=== PATIENT | female | born 1940 | race Caucasian/White ===

== ENCOUNTER 2021-01-11 08:13 | Emergency (ER) | payer MEDICARE, OTHER ==
[2021-01-11 09:13] LABS: Absolute Lymphocytes (CBC) 1.8 K/uL (0.7-4.9); Hematocrit 41.4 % (36.0-45.0); Lymphocytes % 16.8 % (15.3-44.8); MPV 7.8 fL (7.6-11.3); RBC Red Blood Cell Count 4.89 M/uL (3.86-4.86)
[2021-01-11 09:34] LABS: Albumin 3.1 g/dL (3.4-5.0); Bilirubin Direct 0.1 mg/dL (0-0.2); Bilirubin Total 0.4 mg/dL (0.2-1.0); Protein, Total 6.9 g/dL (6.4-8.2)
[2021-01-11 09:35] LABS: Potassium 3.6 mmol/L (3.5-5.1)
--- NOTE | 2021-01-11 10:03 | RAD REPORT ---
EXAM DESCRIPTION: CT - Abdomen Pelvis W Contrast - 01/11/2021 9:47 am CLINICAL HISTORY: ABD PAIN COMPARISON: No comparisons TECHNIQUE: Biphasic, helical CT imaging of the abdomen and pelvis was performed following 100 ml non -ionic IV contrast. No oral contrast was administered. All CT scans are performed using dose optimization technique as appropriate and may include automated exposure control or mA/KV adjustment according to patient size. FINDINGS: No suspicious findings in the lung bases. No cardiomegaly or pericardial effusion. Liver shows mild diffuse fatty infiltration pattern with no focal parenchymal lesion. No portal vein abnormality. Spleen and pancreas show no suspicious findings. Small accessory splenic nodule present peer cholecystectomy clips are present with no biliary tree dilatation. Symmetric renal function is seen with no hydronephrosis or suspicious renal mass. No pyelonephritis o r acute parenchymal process. A 2.7 centimeter upper pole right renal cyst is present. Contracted urin luz maria bladder shows no suspicious finding. No adrenal abnormalities. Prolapse changes are seen along the pelvic floor. Uterus is absent. Ovaries are absent or atrophic. N o adnexal mass. No dilated bowel loops or bowel wall thickening. Patient has mild left-sided diverticulosis without d iverticulitis. Appendix is not clearly seen and may be surgically absent. No appendicitis findings. N o free air, free fluid or inflammatory stranding. No hernia, mass or bulky lymphadenopathy. Spinal degenerative changes are present. Significant disc space narrowing with degenerative gas in th e disc space is noted L2-3, L3-4 and L4-5. There is slight anterior subluxation of L4 on L5 due to ad vanced facet joint degenerative change. Herniation of disc material is present in the left exit kisha en at L3-4. No central spinal stenosis seen. No acute bony pelvic finding. IMPRESSION: Contrast enhanced CT abdomen and pelvis showing no acute or emergent finding. Nonacute findings detailed in the body of the report.
[2021-01-11] MEDS ORDERED: KETOROLAC 30 MG/ML INJ ONE (10:08)
[2021-01-11] MEDS ORDERED: NA CHLORIDE 0.9% 1,000 ML ONE (10:13)
[2021-01-11 11:01] LABS: Urine Appearance CLEAR (Clear); Urine Bilirubin NEGATIVE (Negative); Urine Blood NEGATIVE (Negative); Urine Color YELLOW (Yellow); Urine Glucose NEGATIVE (Negative); Urine Protein NEGATIVE (Negative); Urine Specific Gravity 1.025 (1.005-1.030); Urine Urobilinogen 0.2 mg/dL (0.2-1.0); Urine pH 6.5 (5.0-7.0)
[2021-01-11 11:02] LABS: Urine Microscopic Reflex NO UMIC
--- NOTE | 2021-01-11 11:12 | EDPHYS ---
Physician Documentation [facility] Name: Atiya Wallace Age: 80 yrs Sex: Female : 1940 Arrival Date: 01/11/2021 Time: 08:16 Bed 20 Private MD: ED Physician Vincenzo Faust HPI: 01/11 08:25 This 80 yrs old Female presents to ER via Unassigned with complaints of kdr Abdominal pain and weakness. 08:25 Patient called EMS this morning because she was having persistent abdominal pain and kdr weakness. States that she is normally able to get up and care for herself but this morning she was having too much pain in her lower abdomen and generally felt weak. She had no other focal complaints. She has had similar symptoms in the past. Most recently she has been treated by Dr. Lange for hip pain. She indicated that she had not been getting those treatments for about a month since they were too expensive. Onset: The symptoms/episode began/occurred gradually, yesterday. Severity of symptoms: At their worst the symptoms were mild moderate incapacitating in the emergency department the symptoms are unchanged. The patient has experienced similar episodes in the past, a few times. The patient has not recently seen a physician. Patient refused pain medication on initial exam. Historical: - Allergies: 08:27 Aspirin; sl2 08:27 Demerol; sl2 08:27 Ibuprofen; sl2 08:27 Unable to obtain; sl2 08:27 Morphine; sl2 08:27 Codeine; sl2 08:27 Latex, Natural Rubber; sl2 08:27 Sulfa (Sulfonamide Antibiotics); sl2 08:27 Iodine; sl2 08:27 NKA; sl2 08:27 NKDA; sl2 08:27 Oxycodone; sl2 08:27 Tetanus Vaccines \T\ Toxoid; sl2 08:27 PENICILLINS; sl2 - Immunization history:: Adult Immunizations up to date, Client reports receiving the 2nd dose of the Covid vaccine. - Social history:: Smoking status: Patient denies any tobacco usage or history of. ROS: 08:25 Constitutional: Negative for fever, chills, and weight loss, Eyes: Negative for injury, kdr pain, redness, and discharge, ENT: Negative for injury, pain, and discharge, Neck: Negative for injury, pain, and swelling, Cardiovascular: Negative for chest pain, palpitations, and edema, Respiratory: Negative for shortness of breath, cough, wheezing, and pleuritic chest pain, Back: Negative for injury and pain, : Negative for injury, bleeding, discharge, and swelling, MS/Extremity: Negative for injury and deformity, Skin: Negative for injury, rash, and discoloration, Neuro: Negative for headache, weakness, numbness, tingling, and seizure activity. Psych: Negative for depression, anxiety, suicide ideation, homicidal ideation, and hallucinations, Allergy/Immunology: Negative for hives, rash, and allergies, Endocrine: Negative for neck swelling, polydipsia, polyuria, polyphagia, and marked weight changes, Hematologic/Lymphatic: Negative for swollen nodes, abnormal bleeding, and unusual bruising. 08:25 Abdomen/GI: Positive for abdominal pain, Negative for nausea, vomiting, and diarrhea, constipation, abdominal cramps, abdominal distension, dysphagia, hematemesis, black/tarry stool, rectal pain, rectal bleeding. Exam: 08:25 Constitutional: This is a well developed, well nourished patient who is awake, alert, kdr and in no acute distress. Head/Face: Normocephalic, atraumatic. Eyes: Pupils equal round and reactive to light, extra-ocular motions intact. Lids and lashes normal. Conjunctiva and sclera are non-icteric and not injected. Cornea within normal limits. Periorbital areas with no swelling, redness, or edema. Neck: Trachea midline, no thyromegaly or masses palpated, and no cervical lymphadenopathy. Supple, full range of motion without nuchal rigidity, or vertebral point tenderness. No Meningismus. Chest/axilla: Normal chest wall appearance and motion. Nontender with no deformity. No lesions are appreciated. Cardiovascular: Regular rate and rhythm with a normal S1 and S2. No gallops, murmurs, or rubs. Normal PMI, no JVD. No pulse deficits. Respiratory: Lungs have equal breath sounds bilaterally, clear to auscultation and percussion. No rales, rhonchi or wheezes noted. No increased work of breathing, no retractions or nasal flaring. Back: No spinal tenderness. No costovertebral tenderness. Full range of motion. Skin: Warm, dry with normal turgor. Normal color with no rashes, no lesions, and no evidence of cellulitis. MS/ Extremity: Pulses equal, no cyanosis. Neurovascular intact. Full, normal range of motion. Neuro: Awake and alert, GCS 15, oriented to person, place, time, and situation. Cranial nerves II-XII grossly intact. Motor strength 5/5 in all extremities. Sensory grossly intact. Cerebellar exam normal. Normal gait. Psych: Awake, alert, with orientation to person, place and time. Behavior, mood, and affect are within normal limits. 08:25 Abdomen/GI: Inspection: obese Bowel sounds: active, diminished, in all quadrants, Palpation: soft, mild abdominal tenderness, in the left lower quadrant. Vital Signs: 08:09 BP 156 / 85; Pulse 65; Resp 20; Temp 97.7(T); Pulse Ox 96% on R/A; sl2 09:20 BP 152 / 80; Pulse 68; Resp 18; Temp 97.7; Pulse Ox 96% ; sl2 10:30 BP 116 / 63; Pulse 85; Resp 18; Temp 97.9(O); Pulse Ox 98% on R/A; sl2 11:30 BP 113 / 75; Pulse 63; Resp 18; Temp 97.7(O); Pulse Ox 99% on R/A; sl2 13:14 BP 118 / 76; Pulse 68; Resp 18; Temp 98.4(O); Pulse Ox 99% on R/A; sl2 MDM: 08:25 Data reviewed: vital signs, nurses notes, lab test result(s), radiologic studies. kdr Counseling: I had a detailed discussion with the patient and/or guardian regarding: the historical points, exam findings, and any diagnostic results supporting the discharge/admit diagnosis, lab results, radiology results, the need for outpatient follow up. 11:11 Patient medically screened. kdr 01/11 08:25 Order name: Basic Metabolic Panel; Complete Time: 10:13 kdr 01/11 08:25 Order name: CBC with Diff; Complete Time: 09:33 kdr 01/11 08:25 Order name: CT Abd/Pelvis - IV Contrast Only; Complete Time: 10:13 kdr 01/11 08:25 Order name: Hepatic Function; Complete Time: 10:13 kdr 01/11 08:25 Order name: Lipase; Complete Time: 10:13 kdr 01/11 08:25 Order name: Urinalysis; Complete Time: 11:52 kdr 01/11 08:25 Order name: IV Saline Lock; Complete Time: 09:07 kdr 01/11 08:25 Order name: Labs collected and sent; Complete Time: 09: kdr Administered Medications: 09:10 Drug: NS 0.9% 500 ml Route: IV; Rate: bolus; Site: left forearm; sl2 10:30 Follow up: Response: No adverse reaction; IV Status: Completed infusion; IV Intake: sl2 500ml 10:36 Drug: Ketorolac 15 mg Route: IVP; Site: right forearm; sl2 11:47 Follow up: Response: No adverse reaction; Pain is decreased sl2 Disposition Summary: 01/11/21 11:11 Discharge Ordered Location: Home kdr Problem: new kdr Symptoms: have improved kdr Condition: Stable kdr Diagnosis - Other abdominal pain - Left lower quadrant kdr - Weakness kdr Followup: kdr - With: Private Physician - When: 2 - 3 days - Reason: If symptoms return, Further diagnostic work-up, Recheck today's complaints, Continuance of care, Re-evaluation by your physician Discharge Instructions: - Discharge Summary Sheet kdr - Abdominal Pain, Adult, [id number] kdr - Weakness, [id number] kdr Forms: - Medication Reconciliation Form kdr - Thank You Letter kdr - Antibiotic Education kdr Prescriptions: - Zofran 4 mg Oral Tablet - take 1 tablet by ORAL route every 4-6 hours As needed; 12 tablet; Refills: 0, kdr Product Selection Permitted Signatures: Dispatcher [facility] Hospital[facility] M[facility]onnell MD MD kdr Medina Diaz RN RN Lorraine Leal RN RN sl2 Corrections: (The following items were deleted from the chart) 08:27 08:27 Allergies: No Known Allergies; sl2 sl2
--- NOTE | 2021-01-11 11:12 | ER ---
Nurse's Notes [facility] Name: Atiya Wallace Age: 80 yrs Sex: Female : 1940 Arrival Date: 01/11/2021 Time: 08:16 Bed 20 Private MD: Diagnosis: Other abdominal pain-Left lower quadrant;Weakness Presentation: 01/11 08:09 Chief complaint: EMS states: Patient presents to ED via [facility] with c/o severe sl2 bilateral flank pain and bilateral lower abdominal pain 8 of 10. States urinary frequency but states she drinks a lot of water. Patient has h/o chronic back pain however states this back pain is unusual. Denies Fever, nausea or vomiting. 08:09 Coronavirus screen: Vaccine status: Patient reports receiving the 2nd dose of the covid sl2 vaccine. Ebola Screen: Patient negative for fever greater than or equal to 101.5 degrees Fahrenheit, and additional compatible Ebola Virus Disease symptoms. Initial Sepsis Screen: Does the patient meet any 2 criteria? No. Patient's initial sepsis screen is negative. Does the patient have a suspected source of infection? No. Patient's initial sepsis screen is negative. Risk Assessment: Do you want to hurt yourself or someone else? Patient reports no desire to harm self or others. Onset of symptoms was January 11, 2021. 08:09 Method Of Arrival: EMS: [facility] 08:09 Acuity: ABI 2 sl2 Triage Assessment: 08:27 General: Appears uncomfortable, obese, well developed. Pain: Complains of pain in sl2 bilateral flank and bilateral lower quadrant of abdomen Pain radiates to flank to abdomen Pain currently is 8 out of 10 on a pain scale. at worst was 10 out of 10 on a pain scale. Quality of pain is described as burning, aching, sharp, Pain began suddenly. EENT: No deficits noted. Neuro: No deficits noted. Cardiovascular: No deficits noted. Respiratory: No deficits noted. GI: Abdomen is round obese, Last BM was . Bowel sounds present X 4 quads. Abd is soft Abdomen is tender to palpation in right lower quadrant and left lower quadrant. : No deficits noted. Derm: No deficits noted. Musculoskeletal: No deficits noted. Historical: - Allergies: 08:27 Aspirin; sl2 08:27 Demerol; sl2 08:27 Ibuprofen; sl2 08:27 Unable to obtain; sl2 08:27 Morphine; sl2 08:27 Codeine; sl2 08:27 Latex, Natural Rubber; sl2 08:27 Sulfa (Sulfonamide Antibiotics); sl2 08:27 Iodine; sl2 08:27 NKA; sl2 08:27 NKDA; sl2 08:27 Oxycodone; sl2 08:27 Tetanus Vaccines \T\ Toxoid; sl2 08:27 PENICILLINS; sl2 - Immunization history:: Adult Immunizations up to date, Client reports receiving the 2nd dose of the Covid vaccine. - Social history:: Smoking status: Patient denies any tobacco usage or history of. Screenin:50 Abuse screen: Denies threats or abuse. Nutritional screening: No deficits noted. sl2 Tuberculosis screening: No symptoms or risk factors identified. Fall Risk None identified. Assessment: 08:50 General: Appears uncomfortable, obese, well developed, Behavior is cooperative, sl2 appropriate for age, restless, Reports bilateral flank and bilateral lower quadrant abdominal pain. 08:50 Pain: Pain radiates to right lower quadrant and left lower quadrant abdomen Pain sl2 currently is 8 out of 10 on a pain scale. at worst was 10 out of 10 on a pain scale. level that patient reports is acceptable is 2 out of 10 on a pain scale. Quality of pain is described as aching, crampy, sharp, Pain began suddenly, Is continuous, Alleviated by nothing. Aggravated by increased activity. Pain: Noted to be agitated, grimacing, moaning, restless, Also complains of no other associated symptoms. Pain: Current management is with Patient states she took 2 tramadol prior to ED arrival - denies needing pain medication at this time. Neuro: No deficits noted. Level of Consciousness is awake, alert, obeys commands, Oriented to person, place, time, situation, Director Machine are equal bilaterally Moves all extremities. Full function Speech is normal, Facial symmetry appears normal. Cardiovascular: No deficits noted. Respiratory: No deficits noted. GI: Abdomen is round obese, Bowel sounds present X 4 quads. Abd is soft Abdomen is tender to palpation bilateral lower quadrant - abdomen Reports lower abdominal pain, Patient currently denies diarrhea, nausea. : Reports urinary frequency, bilateral flank pain Denies burning with urination, incontinence. EENT: No deficits noted. Derm: No deficits noted. Musculoskeletal: No deficits noted. 09:30 Pain: Pain currently is 6 out of 10 on a pain scale. sl2 Vital Signs: 08:09 BP 156 / 85; Pulse 65; Resp 20; Temp 97.7(T); Pulse Ox 96% on R/A; sl2 09:20 BP 152 / 80; Pulse 68; Resp 18; Temp 97.7; Pulse Ox 96% ; sl2 10:30 BP 116 / 63; Pulse 85; Resp 18; Temp 97.9(O); Pulse Ox 98% on R/A; sl2 11:30 BP 113 / 75; Pulse 63; Resp 18; Temp 97.7(O); Pulse Ox 99% on R/A; sl2 13:14 BP 118 / 76; Pulse 68; Resp 18; Temp 98.4(O); Pulse Ox 99% on R/A; sl2 ED Course: 08:16 Patient arrived in ED. eb 08:16 Vincenzo Faust MD is Attending Physician. eb 08:22 Lorraine Leal RN is Primary Nurse. sl2 08:27 Triage completed. sl2 08:27 Arm band placed on right wrist. sl2 08:50 Patient has correct armband on for positive identification. Bed in low position. Side sl2 rails up X2. 09:00 Inserted saline lock: 22 gauge in left forearm, using aseptic technique. Blood sl2 collected. 09:15 Inserted saline lock: 22 gauge in right forearm, using aseptic technique. sl2 09:[address] via stretcher. sl2 09:47 CT Abd/Pelvis - IV Contrast Only In Process Unspecified. EDMS 09:[address]. sl2 13:12 No provider procedures requiring assistance completed. IV discontinued, intact. sl2 Administered Medications: 09:10 Drug: NS 0.9% 500 ml Route: IV; Rate: bolus; Site: left forearm; sl2 10:30 Follow up: Response: No adverse reaction; IV Status: Completed infusion; IV Intake: sl2 500ml 10:36 Drug: Ketorolac 15 mg Route: IVP; Site: right forearm; sl2 11:47 Follow up: Response: No adverse reaction; Pain is decreased sl2 Intake: 10:30 IV: 500ml; Total: 500ml. sl2 Outcome: 11:11 Discharge ordered by . kdr 13:12 Discharged to home via wheelchair, with family. sl2 13:12 Condition: stable 13:12 Discharge instructions given to Instructed on discharge instructions, follow up and referral plans. medication usage, Demonstrated understanding of Prescriptions given X 1. 13:15 Patient left the ED. sl2 Signatures: Dispatcher [employer] EDMS Vincenzo Faust MD MD kdr Botello, Elizabeth eb Landell, Sophia RN RN sl2 Corrections: (The following items were deleted from the chart) 08:27 08:27 Allergies: No Known Allergies; sl2 sl2 09:49 09:00 Inserted saline lock: 22 gauge in left upper arm, using aseptic technique. Blood sl2 collected. sl2
[2021-01-11 13:38] VITALS: O2SAT 99
[2021-01-11 13:39] VITALS: BP 118/76; TEMP 98.4
== END 2021-01-11 13:15 | disposition home or self-care (01) ==
LOC: ER 08:13
DX: R53.1 Weakness (principal); Z88.0 Allergy status to penicillin; Z88.2 Allergy status to sulfonamides; Z88.5 Allergy status to narcotic agent; Z88.6 Allergy status to analgesic agent; Z88.7 Allergy status to serum and vaccine; Z91.040 Latex allergy status; Z91.048 Other nonmedicinal substance allergy status
CPT/HCPCS: 96361; 85025; 80048; 36415; 82565; 80076; 81003; 83690; 74177; 96374; 99284; Q9967; J7030

== ENCOUNTER 2022-12-16 09:05 | Observation (INO) | payer OTHER ==
[2022-12-13 13:25] LABS: Absolute Lymphocytes (CBC) 1.5 K/uL (0.7-4.9); Hematocrit 43.5 % (36.0-45.0); Lymphocytes % 16.6 % (15.3-44.8); MCV 86.8 fL (80-100); MPV 7.7 fL (7.6-11.3); Platelets 317 thou/uL (152-406); RBC Red Blood Cell Count 5.01 M/uL (3.86-4.86)
[2022-12-13 13:28] LABS: Calcium Oxalate Crystals- Ur Few /HPF (None Seen); Specific Gravity 1.022 (1.005-1.030); Urine Bacteria None Seen /HPF (<20); Urine Bilirubin NEGATIVE (Negative); Urine Blood Negative (Negative); Urine Clarity Extremely Turbid (Clear); Urine Color Yellow (Yellow); Urine Glucose NEGATIVE (Negative); Urine Mucus Slight /HPF (None Seen); Urine Protein TRACE (Negative); Urine RBC <5 /HPF (None Seen); Urine Urobilinogen 1+ (Normal)
[2022-12-13 13:33] LABS: Protime INR 0.98
[2022-12-13 13:39] LABS: Potassium 3.9 mEq/L (3.5-5.1)
[2022-12-16] MEDS ORDERED: Ringers Lactate 1,000 ML IV ONE ×2 (09:33→14:59)
[2022-12-16] MEDS ORDERED: LIDOCAINE HCL/EPINEPHRINE 20 ML MDV ONE (10:48)
[2022-12-16] MEDS ORDERED: NA CHLORIDE 0.9% 100 ML ONE (10:48)
[2022-12-16] MEDS ORDERED: CEFAZOLIN SODIUM 1 GM/VIAL ONE (10:48)
[2022-12-16] MEDS ORDERED: VASOPRESSIN 20 UNIT/ML VIAL ONE (10:49)
[2022-12-16] MEDS ORDERED: FENTANYL CITR 100 MCG/2 ML ONE ×3 (10:57→13:48)
[2022-12-16] MEDS ORDERED: LIDOCAINE 2% MPF 5 ML VIAL ONE (10:57)
[2022-12-16] MEDS ORDERED: propofoL 200 MG/20 ML VIAL IV ONE (10:57)
[2022-12-16] MEDS: CEFAZOLIN SODIUM 2 GM/VIAL ONE ×2 (11:14→11:34)
[2022-12-16] MEDS ORDERED: GLYCOPYRROLATE 0.2 MG/ML SYR ONE ×3 (11:53→14:59)
[2022-12-16] MEDS ORDERED: dexAMETHasone 10 MG/ML VIAL ONE (11:55)
[2022-12-16] MEDS ORDERED: NEOSTIGMINE 1 MG/ML -10 ML VIAL ONE (13:58)
[2022-12-16] MEDS ORDERED: MORPHINE 2 MG/ML SYR IV PRN (15:30)
[2022-12-16] MEDS ORDERED: ACETAMINOPHEN 325 MG TABLET PO PRN (15:31)
--- OUTSIDE RECORDS SUMMARY | 2022-12-16 15:32 | XMS REPORT | Continuity of Care Document ---
:1940 Author Organization [facility] t Address [address] [place] [id number] Care Team Providers Name Role Phone Jeniffer Wiggins Attending Clinician Unavailable [email or web address] Attending Clinician Unavailable [email or web address] Admitting Clinician Unavailable Payers Payer Name Policy Type Policy Number Effective Date Expiration Date S myriam [employer] - MEDICARE [id number] COMPLETE (MEDICARE REPLACEMENT HMO) [facility] [id number] Problems This patient has no known problems. Allergies, Adverse Reactions, Alerts This patient has no known allergies or adverse reactions. Medications This patient has no known medications. Procedures This patient has no known procedures. Encounters Start End Encounter Admission Attending Care Care Encounter Source Date/Time Date/Time Type Type Clinicians Facility Department ID 2022-04-30 Outpatient Wiggins, [facility] [id number] Common 14:31:01 Jeniffer [facility] 2022-01-18 Outpatient Wiggins, [facility] [id number] Common 13:25:04 Jeniffer [facility] 2021-10-19 Outpatient Wiggins, [facility] [id number] Common 14:00:03 Jeniffer [facility] 2021-09-07 Outpatient Wiggins, [facility] [id number] Common 14:23:01 Jeniffer [facility] 2021-08-31 Outpatient Wiggins, [facility] [id number] Common 13:53:02 Jeniffer [facility] 2021-08-28 Outpatient Rosalie [facility] [id number] Common 15:36:00 Jeniffer [facility] 2021-06-25 Outpatient Wiggins, [facility] [id number] Common 11:22:01 Jeniffer [facility] 2021-06-03 Outpatient Wiggins, [facility] [id number] Common 10:41:03 Jeniffer [facility] 2021-05-29 Outpatient Wiggins, [facility] [id number] Common 10:55:03 Jeniffer [facility] 2021-05-05 Outpatient Wiggins [facility] [id number] Common 14:12:02 Jeniffer [facility] 2022-12-14 2022-12-14 Outpatient GC_GCBZW_Ka PRIV PRIV [id number] [facility] 00:00:00 00:00:00 diyala_S [id number] Medic al 2022-12-14 2022-12-14 Outpatient GC_GCBZW_Ka PRIV PRIV [id number] [facility] 00:00:00 00:00:00 diyala_S [id number] Medic al 2022-12-13 2022-12-13 Outpatient GC_GCBZW_Ka PRIV PRIV [id number] [facility] 00:00:00 00:00:00 diyala_S [id number] Medic al 2022-12-08 2022-12-08 Outpatient GC_GCBZW_Ka PRIV PRIV [id number] [facility] 00:00:00 00:00:00 diyala_S [id number] Medic al 2022-12-06 2022-12-06 Outpatient GC_GCBZW_Ka PRIV PRIV [id number] [facility] 00:00:00 00:00:00 diyala_S [id number] Medic al 2022-11-29 2022-11-29 Outpatient GC_GCBZW_Ka PRIV PRIV [id number] [facility] 00:00:00 00:00:00 diyala_S [id number] Medic al 2022-11-22 2022-11-22 Outpatient GC_GCBZW_Ka PRIV PRIV [id number] [facility] 00:00:00 00:00:00 diyala_S [id number] Medic al 2022-10-26 2022-10-26 Outpatient GC_GCBZW_Ka PRIV PRIV [id number] [facility] 00:00:00 00:00:00 diyala_S [id number] Medic al 2022-10-25 2022-10-25 Outpatient GC_GCBZW_Ka PRIV PRIV [id number] [facility] 00:00:00 00:00:00 diyala_S [id number] Medic al 2022-09-28 2022-09-28 Outpatient GC_GCBZW_Ka PRIV PRIV [id number] [facility] 00:00:00 00:00:00 diyala_S [id number] Medic al 2022-09-28 2022-09-28 Outpatient GC_GCBZW_Ka PRIV PRIV [id number] [facility] 00:00:00 00:00:00 diyala_S [id number] Medic al Results This patient has no known results.
[2022-12-16] MEDS ORDERED: PROMETHAZINE INJ 25 MG/ML AMP IV PRN (15:38)
[2022-12-16] MEDS ORDERED: ONDANSETRON 4 MG/2 ML VIAL IV PRN (15:43)
[2022-12-16] MEDS ORDERED: ATROPINE SULF 1 MG/10 ML SYR IV ONE (15:43)
[2022-12-16 15:44] VITALS: O2SAT 100
[2022-12-16] MEDS ORDERED: PROMETHAZINE 25 MG TABLET PO PRN (15:47)
[2022-12-16 16:19] VITALS: BMI 5286.6
[2022-12-16] MEDS ORDERED: INFLUENZA VACCINE (for 6+ mo) 0.5 ML DOSE IMVAC ONE (17:30)
[2022-12-17 03:19] LABS: Absolute Lymphocytes (CBC) 0.8 K/uL (0.7-4.9); Hematocrit 34.7 % (36.0-45.0); Lymphocytes % 6.5 % (15.3-44.8); MCV 86.1 fL (80-100); MPV 8.1 fL (7.6-11.3); Platelets 251 thou/uL (152-406); RBC Red Blood Cell Count 4.03 M/uL (3.86-4.86)
[2022-12-17 03:35] LABS: Potassium 4.2 mEq/L (3.5-5.1)
[2022-12-17 08:42] VITALS: BP 127/57; TEMP 98.3
== END 2022-12-17 13:59 | disposition home or self-care (01) ==
LOC: OR 09:05 → INTOOBSV 15:02 → 2ND 15:02 → UNDODISIN 12-17 09:46
PROVIDERS: ADMIT Obstetrics & Gynecology; ATTEND Obstetrics & Gynecology
PROC: 0JQC0ZZ Repair Pelvic Region Subcutaneous Tissue and Fascia, Open Approach (ICD-10-PCS; 2022-12-16)
PROC: 0USG8ZZ Reposition Vagina, Via Natural or Artificial Opening Endoscopic (ICD-10-PCS; 2022-12-16)
PROC: 0TSD0ZZ Reposition Urethra, Open Approach (ICD-10-PCS; 2022-12-16)
PROC: 0JUC0JZ Supplement of Pelvic Region Subcutaneous Tissue and Fascia with Synthetic Substitute, Open Approach (ICD-10-PCS; principal; 2022-12-16 10:30)
DX: N99.3 Prolapse of vaginal vault after hysterectomy (principal); N39.3 Stress incontinence (female) (male); I10 Essential (primary) hypertension; E78.5 Hyperlipidemia, unspecified; E03.9 Hypothyroidism, unspecified; G47.33 Obstructive sleep apnea (adult) (pediatric); J44.9 Chronic obstructive pulmonary disease, unspecified; N32.81 Overactive bladder
CPT/HCPCS: 85025 ×2; 81001; 80048 ×2; 36415 ×2; 86900; 86850; 85610; 86901; 85730; 94010; 57250; 57282; 57288; J2704; J2710; J0461; J2001; J3010 ×3; J1100; J2270; G0378 ×3; J7120 ×2; J0690; G0379; C1771

== ENCOUNTER 2024-06-01 08:15 | Emergency (ER) | payer OTHER ==
--- OUTSIDE RECORDS SUMMARY | 2024-06-01 08:18 | XMS REPORT | Continuity of Care Document ---
Author Name Unknown Address [address] [place] [address] [facility] 1 [address] [place] [address] Care Team Providers Care Scarf Gluer Name Role Phone Jeniffer Wiggins Attending Clinician Unavailable GC_GCBZW_Kajaneta_S Attending Clinician Unavaila ble GC_GCBZW_Kadiyala_S Admitting Clinician Unavaila ble Payers Payer Name Policy Type Policy Number Effective Date Expirati on Date Source [facility] (MEDICARE REPLACEMENT/[place] GE - HMO) [id number] 2022 00:00:00 [employer] - MEDICARE COMPLETE (MEDICARE REPLACEMENT HMO) [id number] [facility] [id number] Encounters Start Date/Time End Date/Time Encounter Type Admission Type Attending Clinicians Care Facility Care Department Encounter ID Source 2024-04-05 15:37:00 Outpatient Jeniffer Wiggins [facility] [id number] [facility] 2024-03-22 10:05:01 Outpatient Jeniffer Wiggins [facility] [id number] [facility] 2023-06-28 14:01:00 Outpatient Jeniffer Wiggins [facility] [id number] [facility] 2022-12-30 14:38:00 Outpatient Jeniffer Wiggins [facility] [id number] [facility] 2022-04-30 14:31:01 Outpatient Jeniffer Wiggins [facility] [id number] [facility] 2022-01-18 13:25:04 [id number] [facility] 2021-10-19 14:00:03 [facility] [id number] [facility] 2021-09-07 14:23:01 [facility] [id number] [facility] 2021-08-31 13:53:02 Outpatient WigginsJeniffer stewart [facility] [id number] [facility] 2021-08-28 15:36:00 Outpatient WigginsJeniffer stewart [facility] [id number] [facility] 2021-06-25 11:22:01 Outpatient WigginsJeniffer stewart [facility] [id number] [facility] 2021-06-03 10:41:03 Outpatient WigginsJeniffer stewart [facility] [id number] [facility] 2021-05-29 10:55:03 Outpatient WigginsJeniffer stewart [facility] [id number] [facility] 2021-05-05 14:12:02 Outpatient Jeniffer Wiggins [facility] [id number] [facility] 2023-05-24 00:00:00 2023-05-24 00:00:00 Outpatient GC_GCBZW_Ka diyala_S PRIV PRIV [id number] [facility] 2023-05-18 00:00:00 2023-05-18 00:00:00 Outpatient GC_GCBZW_Ka diyala_S PRIV PRIV [id number] [facility] 2023-05-06 00:00:00 2023-05-06 00:00:00 Outpatient GC_GCBZW_Ka diyala_S PRIV PRIV [id number] [facility] 2023-04-05 00:00:00 2023-04-05 00:00:00 Outpatient GC_GCBZW_Ka diyala_S PRIV PRIV [id number] [facility] 2023-03-23 00:00:00 2023-03-23 00:00:00 Outpatient GC_GCBZW_Ka diyala_S PRIV PRIV [id number] [facility] 2023-02-15 00:00:00 2023-02-15 00:00:00 Outpatient GC_GCBZW_Ka diyala_S PRIV PRIV [id number] [facility] 2023-02-15 00:00:00 2023-02-15 00:00:00 Outpatient GC_GCBZW_Ka diyala_S PRIV PRIV [id number] [facility] 2023-02-08 00:00:00 2023-02-08 00:00:00 Outpatient GC_GCBZW_Ka diyala_S PRIV PRIV [id number] [facility] 2023-02-08 00:00:00 2023-02-08 00:00:00 Outpatient GC_GCBZW_Ka diyala_S PRIV PRIV [id number] [facility] 2023-02-01 00:00:00 2023-02-01 00:00:00 Outpatient GC_GCBZW_Ka diyala_S PRIV PRIV [id number] [facility] 2023-01-26 00:00:00 2023-01-26 00:00:00 Outpatient GC_GCBZW_Ka diyala_S PRIV PRIV [id number] [facility] 2023-01-08 00:00:00 2023-01-08 00:00:00 Outpatient GC_GCBZW_Ka diyala_S PRIV PRIV [id number] [facility] 2023-01-05 00:00:00 2023-01-05 00:00:00 Outpatient GC_GCBZW_Ka diyala_S PRIV PRIV [id number] [facility] 2023-01-05 00:00:00 2023-01-05 00:00:00 Outpatient GC_GCBZW_Ka diyala_S PRIV PRIV [id number] [facility] 2022-12-20 00:00:00 2022-12-20 00:00:00 Outpatient GC_GCBZW_Ka diyala_S PRIV PRIV [id number] [facility] 2022-12-14 00:00:00 2022-12-14 00:00:00 Outpatient GC_GCBZW_Ka diyala_S PRIV PRIV [id number] [facility] 2022-12-14 00:00:00 2022-12-14 00:00:00 Outpatient GC_GCBZW_Ka diyala_S PRIV PRIV [id number] [facility] 2022-12-14 00:00:00 2022-12-14 00:00:00 Outpatient GC_GCBZW_Ka diyala_S PRIV PRIV [id number] [facility] 2022-12-13 00:00:00 2022-12-13 00:00:00 Outpatient GC_GCBZW_Ka diyala_S PRIV PRIV [id number] [facility] 2022-12-08 00:00:00 2022-12-08 00:00:00 Outpatient GC_GCBZW_Ka diyala_S PRIV PRIV [id number] [facility] 2022-12-06 00:00:00 2022-12-06 00:00:00 Outpatient GC_GCBZW_Ka diyala_S PRIV PRIV [id number] [facility] 2022-11-29 00:00:00 2022-11-29 00:00:00 Outpatient GC_GCBZW_Ka diyala_S PRIV PRIV [id number] [facility] 2022-11-22 00:00:00 2022-11-22 00:00:00 Outpatient GC_GCBZW_Ka diyala_S PRIV PRIV [id number] [facility] 2022-10-26 00:00:00 2022-10-26 00:00:00 Outpatient GC_GCBZW_Ka diyala_S PRIV PRIV [id number] [facility] 2022-10-25 00:00:00 2022-10-25 00:00:00 Outpatient GC_GCBZW_Ka diyala_S PRIV PRIV [id number] [facility] 2022-09-28 00:00:00 2022-09-28 00:00:00 Outpatient GC_GCBZW_Ka diyala_S PRIV PRIV [id number] [facility] 2022-09-28 00:00:00 2022-09-28 00:00:00 Outpatient GC_GCBZW_Ka diyala_S PRIV PRIV [id number] [facility]
[2024-06-01] MEDS ORDERED: methocarbamoL 750 MG TAB ONE (08:48)
[2024-06-01] MEDS ORDERED: ACETAMINOPHEN 500 MG TAB ONE (08:48)
[2024-06-01] MEDS ORDERED: KETOROLAC 30 MG/ML INJ ONE (08:48)
[2024-06-01] MEDS ORDERED: LIDOCAINE 4% PATCH ONE (08:49)
[2024-06-01] MEDS ORDERED: ONDANSETRON 4 MG (ODT) TAB ONE (08:49)
--- NOTE | 2024-06-01 09:50 | RAD REPORT ---
EXAMINATION: Pelvis CLINICAL INDICATION: Female, 84 years old. BL hip pain COMPARISON: CT 01/11/2021 FINDINGS: No acute fracture. No malalignment/dislocation. Degenerative changes in the lower spine. Other: Clustered calcifications in the right aspect of the anatomic pelvis corresponds to ovarian denise cifications which were also present on the CT from 01/11/2021. IMPRESSION: No acute osseous abnormality.
--- NOTE | 2024-06-01 09:55 | EDPHYS ---
Physician Documentation [facility] Name: Atiya Wallace Age: 84 yrs Sex: Female : 1940 Arrival Date: 06/01/2024 Time: 08:15 Bed 2 Private MD: ED Physician Jeronimo Muniz HPI: 06/01 08:32 This 84 yrs old Female presents to ER via EMS with complaints of Back Pain. ec2 08:32 Patient arrives today for evaluation of chronic bilateral hip pain. Patient reports ec2 several years of hip pain, states that she was having difficulty get out of bed and subsequently called EMS, also reports that she is having some nausea as well. No recent falls injuries or trauma, no red flag symptoms.. Historical: - Allergies: 08:18 NKDA; ss - PMHx: 08:18 COPD; ss - Immunization history:: Adult Immunizations unknown. - Infectious Disease History:: Denies. - Social history:: Smoking status: unknown. ROS: 08:33 Constitutional: as per hpi ec2 Exam: 08:33 Constitutional: GEN: NAD Head: atraumatic Eyes: EOMI Ears: External ears are ec2 normal. CV: regular rate LUNGS: no respiratory distress ABD: non-distended SKIN: no evidence of rashes MSK: no evidence of trauma, no C/T/L spine deformities. Bilateral hips with TTP without deformities, intact distal neurovascular status in the bilateral lower extremities. Vital Signs: 08:17 BP 128 / 94; ss 08:18 BP 128 / 94; Pulse 68; Resp 18; Temp 98.8; Pulse Ox 98% on R/A; Weight 81.65 kg; Height em1 5 ft. 0 in. ; Pain 7/10; 10:06 BP 132 / 67; Pulse 62; Pulse Ox 95% on R/A; ap3 08:18 Body Mass Index 35.15 (81.65 kg, 152.4 cm) em1 08:18 Pain Scale: Adult em1 MDM: 08:21 Medical Screening Exam initiated ec2 08:33 Data reviewed: vital signs, nurses notes. ED course: Patient arrives today for ec2 evaluation of bilateral hip pain. Examination is revealing for nontoxic individuals otherwise in no acute distress. Will give medication for nausea. Will also treat the patient's pain. Doubt spinal cord pathology or fracture, lack of associated symptoms.. 09:53 ED course: Pelvis x-ray shows no bony fracture or abnormality. Will discharge home have ec2 the patient follow-up PCP. Return precautions given. 06/01 08:48 Order name: Pelvis XRAY; Complete Time: 09:53 ec2 Administered Medications: 09:02 Drug: Methocarbamol PO 750 mg PO once Route: PO; ap3 10:07 Follow up: Response: No adverse reaction; Pain is decreased ap3 09:02 Drug: Acetaminophen PO 1000 mg PO once Route: PO; ap3 10:07 Follow up: Response: No adverse reaction; Pain is decreased ap3 09:02 Drug: Ketorolac IM 30 mg IM once Route: IM; Site: left deltoid; ap3 10:07 Follow up: Response: No adverse reaction; Pain is decreased ap3 09:02 Drug: Lidoderm Topical Patch 5 % (700 mg/patch) 1 patches Topical once; leave on for 12 ap3 hours; cover most painful area; may cut into smaller pieces Route: Topical; Site: affected area; 10:07 Follow up: Response: No adverse reaction; Pain is decreased ap3 09:02 Drug: Ondansetron Oral Disintegrating Tablet Oral Disintegrating Tablet 4 mg PO once ap3 Route: PO; 10:07 Follow up: Response: No adverse reaction ap3 Disposition Summary: 06/01/24 09:55 Discharge Ordered Notes: Location: Home ec2 Condition: Stable ec2 Diagnosis - Pain in right hip ec2 - Pain in left hip ec2 Followup: ec2 - With: Private Physician - When: - Reason: Re-evaluation by your physician Discharge Instructions: - Discharge Summary Sheet ec2 - Hip Pain ec2 Forms: - Medication Reconciliation Form ec2 - Antibiotic Education ec2 - Prescription Opioid Use ec2 - Patient Portal Instructions ec2 - Leadership Thank You Letter ec2 Prescriptions: - methocarbamol 500 mg Oral tablet - take 1 tablet ORAL route 4 times per day; 20 tablet; Refills: 0, Product ec2 Selection Permitted Signatures: Dispatcher [employer] Medina Pratt RN RN ss Prokisch, Amanda, RN RN ap3 Jeronimo Muniz MD MD ec2 Corrections: (The following items were deleted from the chart) 08:20 08:18 Allergies: Aspirin; ss ss 08:20 08:18 Allergies: Codeine; ss ss 08: 08:18 Allergies: Demerol; [facility] 08: 08:18 Allergies: Ibuprofen; [facility] 08: 08:18 Allergies: Iodine; [facility] : 08:18 Allergies: PENICILLINS; [facility] : 08:18 Allergies: Sulfa (Sulfonamide Antibiotics); [facility] 08: 08:18 Allergies: Tetanus Vaccines \T\ Toxoid; [facility] : 08:18 Allergies: Morphine; [facility] : 08:18 Allergies: Latex; [facility] 08:49 08:49 Pelvis+RAD.RAD.BRZ ordered. EDMS EDMS
--- NOTE | 2024-06-01 09:55 | ER ---
Nurse's Notes [facility] Name: Atiya aWllace Age: 84 yrs Sex: Female : 1940 Arrival Date: 06/01/2024 Time: 08:15 Bed 2 Private MD: Diagnosis: Pain in right hip;Pain in left hip Presentation: 06/01 08:17 Chief complaint: EMS states: intermittent back pain x 1 year. Nausea and cough that ss began this morning. Coronavirus screen: Client denies travel out of the [place] in the last 14 days. Ebola Screen: Patient denies exposure to infectious person. Patient denies travel to an Ebola-affected area in the 21 days before illness onset. Initial Sepsis Screen: Does the patient meet any 2 criteria? No. Patient's initial sepsis screen is negative. Does the patient have a suspected source of infection? No. Patient's initial sepsis screen is negative. Risk Assessment: Do you want to hurt yourself or someone else? Patient reports no desire to harm self or others. Onset of symptoms is unknown. 08:17 Method Of Arrival: EMS: [facility] 08:17 Acuity: ABI 3 ss Historical: - Allergies: 08:18 NKDA; ss - PMHx: 08:18 COPD; ss - Immunization history:: Adult Immunizations unknown. - Infectious Disease History:: Denies. - Social history:: Smoking status: unknown. Screenin:26 Abuse screen: Denies threats or abuse. Nutritional screening: No deficits noted. ap3 Tuberculosis screening: No symptoms or risk factors identified. 10:06 [facility] ED Fall Risk Assessment (Adult) History of falling in the last 3 months, ap3 including since admission No falls in past 3 months (0 pts) Confusion or Disorientation No (0 pts) Intoxicated or Sedated No (0 pts) Impaired Gait No (0 pts) Mobility Assist Device Used No (0 pt) Altered Elimination No (0 pt) Score/Fall Risk Level 0 - 2 = Low Risk Oriented to surroundings, Maintained a safe environment, Educated pt \T\ family on fall prevention, incl call for assistance when getting out of bed, Assessed \T\ reinforced patient's understanding of fall precautions, Hourly rounding (assess needs \T\ fall precautionary measures) done, Used ambulatory aids as needed (educated on \T\ assisted with). Assessment: 08:24 General: Appears in no apparent distress. Behavior is calm, cooperative, appropriate ap3 for age. Pain: Complains of pain in left hip and right hip Pain currently is 7 out of 10 on a pain scale. Pain began years ago. Is chronic. Neuro: Oriented to person, place, time, situation, Speech is normal. Cardiovascular: Patient's skin is warm and dry. Respiratory: Reports cough that is Airway is patent Respiratory effort is even, unlabored, Respiratory pattern is regular, symmetrical. 09:06 Reassessment: Patient and/or family updated on plan of care and expected duration. Pain ap3 level reassessed. Patient is alert, oriented x 3, equal unlabored respirations, skin warm/dry/pink. 09:46 Reassessment: Patient and/or family updated on plan of care and expected duration. Pain ap3 level reassessed. Patient is alert, oriented x 3, equal unlabored respirations, skin warm/dry/pink. Patient states feeling better. Patient states symptoms have improved. Vital Signs: 08:17 BP 128 / 94; ss 08:18 BP 128 / 94; Pulse 68; Resp 18; Temp 98.8; Pulse Ox 98% on R/A; Weight 81.65 kg; Height em1 5 ft. 0 in. ; Pain 7/10; 10:06 BP 132 / 67; Pulse 62; Pulse Ox 95% on R/A; ap3 08:18 Body Mass Index 35.15 (81.65 kg, 152.4 cm) em1 08:18 Pain Scale: Adult em1 ED Course: 08:16 Patient arrived in ED. ss 08:17 Jeronimo Muniz MD is Attending Physician. ec2 08:18 Triage completed. ss 08:23 Gracie Lewis, LINA is Primary Nurse. ap3 08:26 Arm band placed on right wrist. ap3 08:26 Patient has correct armband on for positive identification. Bed in low position. Call ap3 light in reach. Side rails up X2. Provided Education on: call light education. Pulse ox on. NIBP on. 09:43 Pelvis XRAY In Process Unspecified. EDMS 10:06 No provider procedures requiring assistance completed. Patient did not have IV access ap3 during this emergency room visit. Administered Medications: 09:02 Drug: Methocarbamol PO 750 mg PO once Route: PO; ap3 10:07 Follow up: Response: No adverse reaction; Pain is decreased ap3 09:02 Drug: Acetaminophen PO 1000 mg PO once Route: PO; ap3 10:07 Follow up: Response: No adverse reaction; Pain is decreased ap3 09:02 Drug: Ketorolac IM 30 mg IM once Route: IM; Site: left deltoid; ap3 10:07 Follow up: Response: No adverse reaction; Pain is decreased ap3 09:02 Drug: Lidoderm Topical Patch 5 % (700 mg/patch) 1 patches Topical once; leave on for 12 ap3 hours; cover most painful area; may cut into smaller pieces Route: Topical; Site: affected area; 10:07 Follow up: Response: No adverse reaction; Pain is decreased ap3 09:02 Drug: Ondansetron Oral Disintegrating Tablet Oral Disintegrating Tablet 4 mg PO once ap3 Route: PO; 10:07 Follow up: Response: No adverse reaction ap3 Medication: 10:07 VIS not applicable for this client. ap3 Outcome: 09:55 Discharge ordered by . ec2 10:11 Discharged to home with family, ap3 10:11 Condition: good 10:11 Discharge instructions given to patient, family, Instructed on discharge instructions, follow up and referral plans. medication usage, Demonstrated understanding of instructions, follow-up care, medications, Prescriptions given X 1, 10:26 Patient left the ED. ap3 Signatures: Dispatcher [employer] Pk Graham em1 Medina Borjas RN RN ss Prokisch, Amanda, RN RN ap3 Jeronimo Muniz MD MD ec2 Corrections: (The following items were deleted from the chart) 08:20 08:18 Allergies: Aspirin; [facility] 08:20 08:18 Allergies: Codeine; [facility] 08:20 08:18 Allergies: Demerol; [facility] 08:20 08:18 Allergies: Ibuprofen; [facility] 08: 08:18 Allergies: Iodine; [facility] 08: 08:18 Allergies: PENICILLINS; [facility] 08:20 08:18 Allergies: Sulfa (Sulfonamide Antibiotics); [facility] 08:20 08:18 Allergies: Tetanus Vaccines \T\ Toxoid; [facility] 08:20 08:18 Allergies: Morphine; [facility] 08:20 08:18 Allergies: Latex; [facility]
[2024-06-01 10:32] VITALS: TEMP 98.8
[2024-06-01 10:33] VITALS: BP 132/67; O2SAT 95
== END 2024-06-01 10:26 | disposition home or self-care (01) ==
LOC: ER 08:15
DX: M25.552 Pain in left hip (principal); M25.551 Pain in right hip
CPT/HCPCS: 72170; 96372; 99284; Q0162; J2003